=== PATIENT | female | born 1955 | race Caucasian/White ===

== ENCOUNTER → 2020-09-23 | Outpatient (CLI) | payer OTHER ==
--- NOTE | 2020-09-23 17:30 | RAD ---
L-spine 2 views INDICATION: Back pain COMPARISON: None. FINDINGS: AP and lateral views of the lumbar spine were obtained. 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 Below this, 5 lumbar type vertebrae are identified in the anatomic alignment. The bones are demineralized but show no fracture or aggressive appearing osseous lesions. Discs are narrowed at multiple levels throughout the lumbar spine with endplate osteophytic spurring most conspicuous at L2-L3. Facet hypertrophic changes are also present throughout the lumbar spine, most conspicuous at L5-S1. Visualized sacroiliac joints and hips are unremarkable. The soft tissues show surgical clips in the right upper quadrant abdomen. IMPRESSION: Lumbar spinal degenerative changes with no acute or aggressive appearing osseous lesions. 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 Electronically signed by: Afua Malcolm MD (09/23/2020 5:28 PM) [id number]
== END ==
LOC: RAD 13:10
PROVIDERS: ATTEND Anesthesiology Pain Medicine
DX: M25.78 Osteophyte, vertebrae (principal); M46.06 Spinal enthesopathy, lumbar region
CPT/HCPCS: 72100